=== PATIENT | male | born 1985 | race Caucasian/White ===

== ENCOUNTER 2022-06-17 08:00 | Emergency (ER) | payer BC | END 2022-06-17 08:49 | disposition home or self-care (01) | LOC: LB.ED 08:00 | DX: T15.91XA Foreign body on external eye, part unspecified, right eye, initial encounter (principal); H57.89 Other specified disorders of eye and adnexa | CPT/HCPCS: 99283 ==

== ENCOUNTER 2023-08-26 18:26 | Emergency (ER) | payer BC, OTHER ==
[2023-08-26 18:39] VITALS: BP 139/88; PULSE 97
[2023-08-26] MEDS ORDERED: Tetracaine HCl/PF 0.5% 4 ML Bottle EYELF ONE (18:44)
[2023-08-26] MEDS ORDERED: Ciprofloxacin 0.3% Ophth Soln 2.5 ML Bottle ONE (19:00)
== END 2023-08-26 19:08 | disposition home or self-care (01) ==
LOC: LB.ED 18:26
DX: S05.52XA Penetrating wound with foreign body of left eyeball, initial encounter (principal); H10.32 Unspecified acute conjunctivitis, left eye; W45.8XXA Other foreign body or object entering through skin, initial encounter
CPT/HCPCS: 65220; 99283-25; A9270-GY

== ENCOUNTER 2024-07-31 10:54 | Emergency (ER) | payer OTHER ==
[2024-07-31] MEDS: Lidocaine 1% with EPINEPHrine 1:100,000 20 ML MDV INJECT ONE (11:17)
[2024-07-31] MEDS: Diphtheria,Pertussis(Acell),Tetanus Vaccine 0.5 ML Syringe IM ONE (11:32)
[2024-07-31 12:23] VITALS: BP 141/99; PULSE 85
== END 2024-07-31 11:40 | disposition home or self-care (01) ==
LOC: LB.ED 10:54
DX: S71.112A Laceration without foreign body, left thigh, initial encounter (principal); Z23 Encounter for immunization; W22.8XXA Striking against or struck by other objects, initial encounter
CPT/HCPCS: 12002; 90471; 90715; 99282-25; 99283